=== PATIENT | female | born 2000 | race Two or more races ===

== ENCOUNTER 2021-10-26 11:50 | Emergency (ER) | payer OTHER ==
[2021-10-26 11:59] VITALS: BP 116/84
--- NOTE | 2021-10-26 12:32 | ED Physician Documentation ---
History of Present Illness - Stated complaint Stated Complaint: SOA/HEADACHE - Chief complaint Chief Complaint: General - History obtained from History obtained from: Patient - Additonal information Additional information: Previously healthy 21-year-old woman presents with her son who is also ill for evaluation of fever, cough and body aches. She has been sick for about 3 days. She has a runny nose. No vomiting or diarrhea. No rash. She felt short of breath 2 days ago which improved when she used her son's nebulizer. No home COVID test. Review of Systems Constitutional: reports: Chills, Myalgias, Fatigue Nose: reports: Rhinorrhea / runny nose Throat: reports: Sore throat Respiratory: reports: Dyspnea, Cough PD PAST MEDICAL HISTORY - Present Medications Home Medications: Ambulatory Orders Medication Instructions Recorded Confirmed Albuterol Sulf [Ventolin Hfa 1 - 2 puffs INH Q4HR PRN #1 inhaler 10/26/21 Inhaler] - Allergies Allergies/Adverse Reactions: Allergies Allergy/AdvReac Type Severity Reaction Status Date / Time No Known Drug Allergies Allergy Verified 10/26/21 11:59 PD ED PE NORMAL - Vitals Vital signs reviewed: Yes - General General: Alert and oriented X 3, No acute distress, Well developed/nourished - HEENT HEENT: Ears normal, Pharynx benign - Neck Neck: Supple, no meningeal sign, No bony TTP - Cardiac Cardiac: RRR, No murmur - Respiratory Respiratory: No respiratory distress, Clear bilaterally - Abdomen Abdomen: Non tender - Back Back: No CVA TTP, No spinal TTP - Derm Derm: Normal color, Warm and dry - Neuro Neuro: Alert and oriented X 3, Normal speech Results - Vitals Vitals: Vital Signs - 24 hr 10/26/21 11:56 Temperature 37.1 C Heart Rate 102 H Respiratory 14 Rate Blood Pressure 116/84 H O2 Saturation 100 Oxygen O2 Source Room air PD MEDICAL DECISION MAKING - ED course ED course: Otherwise healthy 21-year-old woman presents for the evaluation of what sounds like a nonspecific viral syndrome with URI symptoms. We will check her for COVID. Discussed the need for quarantine and return precautions. Departure - Departure Disposition: 01 Home, Self Care Clinical Impression: Viral URI Condition: Good Record reviewed to determine appropriate education?: Yes Instructions: ED Viral Syndrome Prescriptions: Albuterol Sulf [Ventolin Hfa Inhaler] 1 - 2 puffs INH Q4HR PRN #1 inhaler PRN Reason: Shortness Of Air/Wheezing Comments: Tylenol and or ibuprofen per package instructions as needed for body aches, f patti. Drink plenty of fluids. Return if not better in about 3 days. You have a Covid test pending. You need to self quarantine until the result is done and negative. Do not leave your house. Do not get near anybody. The results should be done in 48 to 72 hours. We will call with a positive result, the fastest way to get a negative result for confirmation though is to go to the hospital website at [email or web address], click on the my [facility] ePrint tab and sign up for the patient portal. If any friends or family get sick and would like to have a Covid test done, but do not have signs or symptoms that would necessitate being hospitalized, there are multiple local options for Covid testing. [facility] keeps an updated list of testing and vaccination options at: [email or web address].
== END 2021-10-26 12:40 | disposition home or self-care (01) ==
LOC: ED 11:50
DX: U07.1 COVID-19 (principal); J06.9 Acute upper respiratory infection, unspecified
CPT/HCPCS: 99281; 99283

== ENCOUNTER 2022-06-04 21:44 | Outpatient (CLI) | payer OTHER ==
--- NOTE | 2022-06-05 03:17 | Ultrasound Report ---
PROCEDURE: OB First Trimester INDICATIONS: POSITIVE TEST OUTSIDE/PRIOR DATING DATA: Last menstrual period (LMP): 04/01/2022. LMP-based estimated date of delivery (SVITLANA): 01/06/2023. First dating scan (date and location): 06/04/2022. Estimated date of delivery (SVITLANA) from first dating scan: 01/07/2023. TECHNIQUE: Real-time scanning was performed of the fetus and maternal pelvic organs, with image documentation. COMPARISON: None. FINDINGS: Embryo: There is a single intrauterine with a crown-rump length measuring up to 2.4 cm cor responding to a gestational age of 9 weeks 0 days. There is heart motion with a rate of 171 bpm . The cervix appears closed. Measurement variability in dating: +/- 4 weeks by LMP, +/- 7 days by mean sac diameter (use before 6 weeks gestation if crown-rump length not able to be measured), +/- 5 days by crown-rump length (6-12 weeks gestation). Maternal organs: Ovaries appear within normal size limits. There is a left ovarian cyst measuring up to 1.2 cm. IMPRESSION: 1. Single living intrauterine with calculated gestational age of 9 weeks 0 days correspondi ng to an estimated delivery date of 01/07/2023. Findings are concordant with patient's dates by LMP. Reviewed by: Ken Huff MD on 06/05/2022 3:15 AM PST Approved by: Ken Huff MD on 06/05/2022 3:15 AM PST Station ID: [id number]
== END 2022-06-04 21:45 | disposition home or self-care (01) ==
LOC: DI 21:44
PROVIDERS: ATTEND Nurse Practitioner
DX: Z34.91 Encounter for supervision of normal pregnancy, unspecified, first trimester (principal)

== ENCOUNTER 2022-06-17 09:30 | Outpatient (CLI) | payer OTHER ==
[2022-06-18 01:35] LABS: CHLAMYDIA TRACHOMATIS DNA NEGATIVE (NEGATIVE)
[2022-06-18 01:36] LABS: NEISSERIA GONORRHOEAE DNA NEGATIVE (NEGATIVE); TRICHOMONAS VAGINALIS DNA NEGATIVE (NEGATIVE)
== END 2022-06-17 23:59 | disposition home or self-care (01) ==
LOC: LAB.WC 09:30
PROVIDERS: ATTEND Nurse Practitioner
DX: Z11.3 Encounter for screening for infections with a predominantly sexual mode of transmission (principal)
CPT/HCPCS: 87491; 87591; 87661

== ENCOUNTER 2022-06-17 10:09 | Outpatient (CLI) | payer OTHER ==
[2022-06-17 10:32] LABS: BASOPHILS % (AUTO) 0.3 %; EOSINOPHILS # (AUTO) 0.2 10^3/uL (0.0-0.7); EOSINOPHILS % (AUTO) 2.9 %; LYMPHOCYTES # (AUTO) 0.9 10^3/uL (1.5-3.5); MEAN CORPUSCULAR HEMOGLOBIN 28.3 pg (27.0-31.0); MEAN CORPUSCULAR HGB CONC 32.4 g/dL (32.0-36.0); MEAN CORPUSCULAR VOLUME 87.3 fL (81.0-99.0); MEAN PLATELET VOLUME 9.9 fL (7.9-10.8); MONOCYTES # (AUTO) 0.4 10^3/uL (0.0-1.0); MONOCYTES % (AUTO) 6.4 %; NEUTROPHILS # (AUTO) 4.5 10^3/uL (1.5-6.6); NEUTROPHILS % (AUTO) 75.2 %; PLT - PLATELET COUNT 303 10^3/uL (130-450); RED BLOOD COUNT 4.24 10^6/uL (4.20-5.40); RED CELL DISTRIBUTION WIDTH 14.7 % (12.0-15.0)
[2022-06-17 10:42] LABS: CREATININE,URINE 162.8 mg/dL; PROTEIN/CREATININE RATIO,URINE 0.1 (<=0.2)
[2022-06-17 10:44] LABS: ALBUMIN 3.8 g/dL (3.2-5.5); ALBUMIN/GLOBULIN RATIO 0.9 (1.0-2.2); BILIRUBIN,TOTAL 0.5 mg/dL (0.2-1.0); CALCIUM 9.5 mg/dL (8.5-10.3); CREATININE 0.5 mg/dL (0.4-1.0); POTASSIUM 3.9 mmol/L (3.5-5.0); URIC ACID 2.6 mg/dL (2.6-7.2)
[2022-06-18 05:11] LABS: HBsAG SCREEN Negative (Negative)
[2022-06-18 06:10] LABS: RPR Non Reactive (Non Reactive)
[2022-06-18 11:11] LABS: VARICELLA-ZOSTER AB IGG 233 index (Immune >165)
[2022-06-19 03:09] LABS: HCV AB Non Reactive (Non Reactive); HIV SCREEN 4TH GENERATION Non Reactive (Non Reactive)
== END 2022-06-17 10:10 | disposition home or self-care (01) ==
LOC: LAB 10:09
PROVIDERS: ATTEND Nurse Practitioner
DX: O12.11 Gestational proteinuria, first trimester (principal)
CPT/HCPCS: 36415; 80053; 82570; 84156; 84550; 85025; 86592; 86762; 86787; 86803; 86850; 86900; 86901; 87340; 87389

== ENCOUNTER 2022-08-19 16:55 | Outpatient (CLI) | payer OTHER ==
[2022-08-23 14:08] LABS: AFP MOM 0.71 (.); AFP VALUE 47.3 ng/mL (.); DIA VALUE 141.21 pg/mL (.); DSR (BY AGE) 1 IN 1035 (.); DSR (SECOND TRIMESTER) 1 IN 10000 (.); HCG VALUE 20628 mIU/mL (.); INSULIN DEP DIABETES No (.); MATERNAL AGE AT EDD 24.9 yr (.); MULTIPLE GESTATION No (.); OPEN SPINA BIFIDA RISK 1 IN 10000 (.); RACE Other (.); RESULTS Report (.); TEST RESULTS *Screen Negative* (.); TRISOMY 18 RISK Not increased (.); UE3 MOM 1.11 (.); UE3 VALUE 2.62 ng/mL (.); WEIGHT 124 lbs (.)
== END 2022-08-19 16:56 | disposition home or self-care (01) ==
LOC: LAB.N 16:55
PROVIDERS: ATTEND Nurse Practitioner
DX: Z34.90 Encounter for supervision of normal pregnancy, unspecified, unspecified trimester (principal)
CPT/HCPCS: 36415; 81511

== ENCOUNTER 2022-08-22 15:04 | Outpatient (CLI) | payer OTHER ==
--- NOTE | 2022-08-22 18:39 | Ultrasound Report ---
PROCEDURE: OB Detailed Eval INDICATIONS: ANATOMY SCAN OUTSIDE/PRIOR DATING DATA: Last menstrual period (LMP): 04/01/2022. LMP-based estimated date of delivery (SVITLANA): 11/18/2022. First dating scan (date and location): 07/19/2022. Estimated date of delivery (SVITLANA) from first dating scan: 01/07/2023. The below data below was generated using the working SVITLANA of 01/07/2023 TECHNIQUE: Real-time scanning was performed of the fetus, with image documentation and biometric measurements. Endovaginal scanning: None COMPARISON: None. FINDINGS: General: A single living intrauterine gestation is present. Presentation: Variable Placenta: Placental position is superior, without previa. Amniotic fluid index: 13 cm, normal for gestational age. heart rate: 150 beats per minute. Maternal cervical canal: 5.7 cm long; normal length is 2.5 cm or more. biometrics: Biparietal diameter: 4.7 cm, 20 week 2 day Head circumference: 17.8 cm, 20 week 2 day Abdominal circumference: 16.1 cm, 21 week 1 day Femur length: 3.3 cm, 20 week 3 day Estimated gestational age from initial scan: 20 week 2 day Composite gestational age from present scan: 20 week 4 day Estimated weight and percentile: 378 g, 74% Measurement variability in biometric dating: +/- 10 days from 12-20 weeks gestation, +/- 2 weeks from 20-30 weeks gestation, +/- 3 weeks at 30 weeks gestation or later. Anatomic survey: Neuro: Ventricles are normal at less than 10 mm. Cisterna magna is normal at 3-11 mm. Cerebellum i s normal in size and morphology. Nuchal skin fold: Normal at less than 6 mm between 14 and 20 weeks gestational age. Face: Nose and lips, facial profile are normal. Spine: No evidence for spina bifida. Heart: 4-chambered heart is present, with normal ventricular outflow tracts. Diaphragm: Diaphragm is intact. Stomach: Left-sided stomach is present. Kidneys: No hydronephrosis. Normal is less than 5 mm in 2nd trimester, less than 7 mm in 3rd trimester. Cord: 3 vessel cord has orthotopic insertion. Bladder: Normal in size. Extremities: All 4 extremities are visualized. IMPRESSION: Single live intrauterine consistent with 20 week 4 day gestation by current ultrasound Reviewed by: Ed Paz MD on 08/22/2022 5:38 PM MOMO Approved by: Ed Paz MD on 08/22/2022 5:38 PM MOMO Station ID: [id number]
== END 2022-08-22 15:05 | disposition home or self-care (01) ==
LOC: DI 15:04
PROVIDERS: ATTEND Nurse Practitioner
DX: Z34.92 Encounter for supervision of normal pregnancy, unspecified, second trimester (principal)

== ENCOUNTER 2022-08-25 19:46 | Emergency (ER) | payer OTHER ==
[2022-08-25 20:11] LABS: RAPID STREP SCREEN Negative (Negative)
[2022-08-25 20:14] LABS: BILIRUBIN,URINE NEGATIVE (NEGATIVE); GLUCOSE, URINE (UA) NEGATIVE (NEGATIVE); KETONES,URINE (UA) NEGATIVE (NEGATIVE); LEUKOCYTE ESTERASE, URINE NEGATIVE (NEGATIVE); NITRITE,URINE NEGATIVE (NEGATIVE); OCCULT BLOOD,URINE NEGATIVE (NEGATIVE); PROTEIN,URINE NEGATIVE (NEGATIVE); UROBILINOGEN,URINE 1 (NORMAL) E.U./dL (NORMAL)
[2022-08-25] MEDS ORDERED: SODIUM CHLORIDE 0.9% 1,000 ML IV STA (20:16)
[2022-08-25 20:17] LABS: CLARITY,URINE CLEAR (CLEAR)
[2022-08-25] MEDS ORDERED: ONDANSETRON 4 MG/2 ML VIAL IVP STA (20:44)
[2022-08-25 21:22] LABS: B. PARAPERTUSSIS- RESP PCR PAN NOT DETECTED; B. PERTUSSIS- RESP PCR PANEL NOT DETECTED; C. PNEUMONIAE- RESP PCR PANEL NOT DETECTED; CORONAVIRUS 229E-RESP PCR NOT DETECTED; CORONAVIRUS HKU1-RESP PCR NOT DETECTED; CORONAVIRUS NL63-RESP PCR NOT DETECTED; CORONAVIRUS OC43-RESP PCR NOT DETECTED; HUMAN METAPNEUMOVIRUS NOT DETECTED; INFLUENZA A- RESP PCR PANEL NOT DETECTED; INFLUENZA B - RESP PCR PANEL NOT DETECTED; M. PNEUMONIAE- RESP PCR PANEL NOT DETECTED; PARAINFLUENZA VIRUS 1 NOT DETECTED; PARAINFLUENZA VIRUS 2 NOT DETECTED; PARAINFLUENZA VIRUS 3 NOT DETECTED; PARAINFLUENZA VIRUS 4 NOT DETECTED; RHINOVIRUS/ENTEROVIRUS NOT DETECTED; RSV- RESP PCR PANEL NOT DETECTED; SARS-CoV-2 -RESP PCR PANEL NOT DETECTED
--- NOTE | 2022-08-25 21:28 | ED Physician Documentation ---
PD HPI HEENT - Stated complaint Stated Complaint: FEVER, LBP, S/T, 20 WKS PG - Chief complaint Chief Complaint: Fever - History obtained from History obtained from: Patient - Additional information Additional information: The patient comes to the emergency department with chief complaint of fever and sore throat. She states her young son has been sick and has had upper respiratory symptoms and she is wonder if she has gotten the same thing. 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 The patient denies any vomiting but has been nauseated. Patient also reports body aches, and especially, a low back ache. She has been a little bit congested in the nose but denies cough or shortness of breath. She is 20 weeks and denies any problems with the . She has not had any vaginal discharge or bleeding and is feeling the baby move. Her next scheduled OB appointment is September 09. Patient states that her symptoms just started yesterday. PD PAST MEDICAL HISTORY - Present Medications Home Medications: Ambulatory Orders Medication Instructions Recorded Confirmed Albuterol Sulf [Ventolin Hfa 1 - 2 puffs INH Q4HR PRN #1 inhaler 10/26/21 Inhaler] - Allergies Allergies/Adverse Reactions: Allergies Allergy/AdvReac Type Severity Reaction Status Date / Time No Known Drug Allergies Allergy Verified 08/25/22 19:55 PD ED PE NORMAL - Vitals Vital signs reviewed: Yes - General General: Alert and oriented X 3, No acute distress, Well developed/nourished, Other (The patient appears mildly uncomfortable but otherwise no apparent distress) - HEENT HEENT: Atraumatic, PERRL, EOMI, Moist mucous membranes, Pharynx benign - Neck Neck: Supple, no meningeal sign - Cardiac Cardiac: No murmur, Other (Tachycardic rate regular rhythm) - Respiratory Respiratory: No respiratory distress, Clear bilaterally - Abdomen Abdomen: Soft, Non tender, Non distended - Derm Derm: Normal color, Warm and dry, No rash - Extremities Extremities: No deformity - Neuro Neuro: Alert and oriented X 3 - Psych Psych: Normal mood, Normal affect Results - Vitals Vitals: Vital Signs - 24 hr 08/25/22 08/25/22 08/25/22 19:50 19:51 21:40 Temperature 37.7 C Heart Rate 127 H 119 H 117 H Respiratory 16 16 18 Rate Blood Pressure 123/68 112/70 101/59 L O2 Saturation 100 100 100 Oxygen O2 Source Room air - Labs Labs: Laboratory Tests 08/25/22 08/25/22 08/25/22 19:59 20:06 20:26 Urine Color YELLOW Urine Clarity CLEAR Urine pH 7.0 Ur Specific [place] 1.010 Urine Protein NEGATIVE Urine Glucose (UA) NEGATIVE Urine Ketones NEGATIVE Urine Occult Blood NEGATIVE Urine Nitrite NEGATIVE Urine Bilirubin NEGATIVE Urine Urobilinogen 1 (NORMAL) Ur Leukocyte Esterase NEGATIVE Ur Microscopic Review NOT INDICATED Urine Culture Comments NOT INDICATED Nasal Adenovirus (PCR) NOT DETECTED Nasal B. parapertussis DNA (PCR) NOT DETECTED Nasal Coronavir 229E PCR NOT DETECTED Nasal Coronavir HKU1 PCR NOT DETECTED Nasal Coronavir NL63 PCR NOT DETECTED Nasal Coronavir OC43 PCR NOT DETECTED Nasal Enterovir/Rhinovir PCR NOT DETECTED Nasal Influenza B PCR NOT DETECTED Nasal Influenza A PCR NOT DETECTED Nasal Parainfluen 1 PCR NOT DETECTED Nasal Parainfluen 2 PCR NOT DETECTED Nasal Parainfluen 3 PCR NOT DETECTED Nasal Parainfluen 4 PCR NOT DETECTED Nasal RSV (PCR) NOT DETECTED Nasal B.pertussis DNA PCR NOT DETECTED Nasal C.pneumoniae (PCR) NOT DETECTED [place] Human Metapneumo PCR NOT DETECTED Nasal M.pneumoniae (PCR) NOT DETECTED Nasal SARS-CoV-2 (PCR) NOT DETECTED Group A Strep Rapid Negative PD Medical Decision Making - ED course Complexity details: reviewed results, re-evaluated patient, considered differential, d/w patient ED course: The patient was not febrile here but was tachycardic and as such, I did give her a liter of 0.9 normal saline. She was worked up with rapid strep, urinalysis, respiratory PCR, all of which were negative. She was found to be feeling better. Her tachycardia had improved though she was still tachycardic in the low 100s. Her blood pressure was normal and I did not feel that she was septic at this point in time. However, we have discussed that if she experiences any worsening her symptoms, she should have a low threshold for reevaluation. Departure - Departure Disposition: 01 Home, Self Care Clinical Impression: Viral syndrome, Viral pharyngitis, Second trimester Condition: Stable Instructions: ED Pharyngitis Viral, ED Viral Syndrome Comments: You have been treated today with IV fluids and nausea medication. We have done some tests to try to make sure that you do not have a serious cause of your fever, based on your symptoms. Your urinalysis and strep test are both negative. Your viral panel has just come back and as far as the viruses we can test for, none of them are showing up positive. Most likely you have one of the many other viruses that can cause flulike symptoms and have been going around recently. In general, viral illnesses will get better on their own as your immune system fights them off, and are not responsive to antibiotics. As such, we do not prescribe antibiotics for viral illnesses. Please be sure you drink plenty of fluids every day. You may take Tylenol 650 mg every 4 hours or 1000 mg every 6 hours. If you prefer to take just one 500 mg tablet at a time, you may take that every 3 hours. In general, these kinds of illnesses last anywhere from several days to 1 to 2 weeks. Usually, you will start to notice improvement in symptoms after several days to a week. You should continue your plans to follow-up with your OB specialist on September 09. If you develop concerns about your sooner than that, please call your OB's office and asked to be seen sooner. For non-OB concerns, you may follow-up with your primary doctor. If you wish to view your results from [facility]'s work-up, you may go to our hospital website at [email or web address], click on the "my [facility]" tab, and sign up for the patient portal to see your results. Forms: Activity restrictions Discharge Date/Time: 08/25/22 21:41
[2022-08-25 21:41] VITALS: BP 101/59
== END 2022-08-25 21:41 | disposition home or self-care (01) ==
LOC: ED 19:46
DX: O99.512 Diseases of the respiratory system complicating pregnancy, second trimester (principal); J02.9 Acute pharyngitis, unspecified; Z20.822 Contact with and (suspected) exposure to COVID-19; Z3A.20 20 weeks gestation of pregnancy
CPT/HCPCS: 81001; 81003; 87070; 87086; 87430; 87633; 96374; 99283

== ENCOUNTER 2022-11-01 09:59 | Outpatient (CLI) | payer OTHER ==
[2022-11-01 18:31] LABS: HCT - HEMATOCRIT 29.3 % (37.0-47.0); HGB - HEMOGLOBIN 8.9 g/dL (12.0-16.0); MEAN CORPUSCULAR HEMOGLOBIN 26.7 pg (27.0-31.0); MEAN CORPUSCULAR HGB CONC 30.4 g/dL (32.0-36.0); MEAN PLATELET VOLUME 11.2 fL (7.9-10.8); RED BLOOD COUNT 3.33 10^6/uL (4.20-5.40); RED CELL DISTRIBUTION WIDTH 12.9 % (12.0-15.0); WHITE BLOOD COUNT 8.3 x10^3/uL (4.8-10.8)
== END 2022-11-01 10:00 | disposition home or self-care (01) ==
LOC: LAB.N 09:59
PROVIDERS: ATTEND Obstetrics & Gynecology
DX: Z34.90 Encounter for supervision of normal pregnancy, unspecified, unspecified trimester (principal); Z36.8A Encounter for antenatal screening for other genetic defects
CPT/HCPCS: 36415; 82950; 85027

== ENCOUNTER 2022-12-08 08:00 | Outpatient (CLI) | payer OTHER | END 2022-12-08 23:59 | disposition home or self-care (01) | LOC: LAB.WC 08:00 | PROVIDERS: ATTEND Obstetrics & Gynecology | DX: Z34.90 Encounter for supervision of normal pregnancy, unspecified, unspecified trimester (principal); Z36.85 Encounter for antenatal screening for Streptococcus B | CPT/HCPCS: 87797 ==

== ENCOUNTER 2022-12-12 09:43 | Outpatient (CLI) | payer OTHER ==
[2022-12-12 10:09] VITALS: BP 123/67; O2SAT 100
[2022-12-12 10:35] LABS: BILIRUBIN,URINE NEGATIVE (NEGATIVE); GLUCOSE, URINE (UA) NEGATIVE (NEGATIVE); KETONES,URINE (UA) NEGATIVE (NEGATIVE); LEUKOCYTE ESTERASE, URINE NEGATIVE (NEGATIVE); NITRITE,URINE NEGATIVE (NEGATIVE); OCCULT BLOOD,URINE NEGATIVE (NEGATIVE); PROTEIN,URINE NEGATIVE (NEGATIVE); UROBILINOGEN,URINE 0.2 (NORMAL) E.U./dL (NORMAL)
[2022-12-12 10:45] LABS: BACTERIA,URINE Rare /HPF (None Seen); CLARITY,URINE CLEAR (CLEAR); RBC,URINE 0-5 /HPF (0-5); SQUAMOUS EPITHELIAL CELL,UR FEW Squamous (<= Few); WBC,URINE 0-3 /HPF (0-5)
--- NOTE | 2022-12-12 10:45 | PROVIDER PROGRESS NOTE ---
- HPI Chief Complaint: Labor Check Current : Vital Signs Temperature 98.6 F 12/12/22 10:02 Heart Rate 76 12/12/22 10:02 Respiratory Rate 16 12/12/22 10:02 Blood Pressure 123/67 12/12/22 10:02 O2 Saturation 100 12/12/22 10:02 Temperature 98.6 F 12/12/22 10:02 Heart Rate 76 12/12/22 10:02 Respiratory Rate 16 12/12/22 10:02 Blood Pressure 123/67 12/12/22 10:02 O2 Saturation 100 12/12/22 10:02 If not protocol: Oxygen Flow, liters/minute - Plan Plan: Patient is a 22-year-old G2, P1 at 36 weeks 3 days gestation presenting for low pelvic pain. She had contractions yesterday and the day before every 5 to 15 minutes. Today this feels most like cramping. This worsens with walking and activity and is resolved by reclining. She feels good movement. No leaking or bleeding. No headache, change in vision, right upper quadrant pain. Physical Exam Constitutional: alert, no acute distress, well hydrated, well developed, well nourished, appropriate dress. Cardiovascular: Regular rate and rhythm. Respiratory: no respiratory distress. Abdomen: nondistended, nontender, no guarding. No suprapubic pressure. Psych: affect and mood appropriate, normal interaction, good eye contact. FHT: 140 bpm baseline, moderate variability, accelerations present, no decelerations [place]: Quiescent SVE:0/0/-3 Assessment and plan 22 old G2, P1 at 36 weeks 3 days gestation 1. Abdominal cramping: -Does not appear to be labor related. No contractions on monitor and pain resolved with rest. Likely discomforts of . No bowel or GI complaints. Unremarkable UA. Plan for symptom relief and labor precautions discussed. -Without cervical dilation nor contractions, repeat exam not necessary.
== END 2022-12-12 11:40 | disposition home or self-care (01) ==
LOC: WFO 09:43 → FBP 09:45 → WFO 11:40
PROVIDERS: ATTEND Obstetrics & Gynecology
DX: O99.891 Other specified diseases and conditions complicating pregnancy (principal); R10.2 Pelvic and perineal pain; Z3A.36 36 weeks gestation of pregnancy
CPT/HCPCS: 81001; 87086; 99215

== ENCOUNTER 2022-12-13 11:29 | Outpatient (CLI) | payer OTHER ==
[2022-12-13 11:36] LABS: HCT - HEMATOCRIT 32.2 % (37.0-47.0); HGB - HEMOGLOBIN 9.8 g/dL (12.0-16.0); MEAN CORPUSCULAR HEMOGLOBIN 26.7 pg (27.0-31.0); MEAN CORPUSCULAR HGB CONC 30.4 g/dL (32.0-36.0); MEAN CORPUSCULAR VOLUME 87.7 fL (81.0-99.0); RED BLOOD COUNT 3.67 10^6/uL (4.20-5.40); RED CELL DISTRIBUTION WIDTH 18.9 % (12.0-15.0); WHITE BLOOD COUNT 7.5 x10^3/uL (4.8-10.8)
== END 2022-12-13 11:30 | disposition home or self-care (01) ==
LOC: LAB 11:29
PROVIDERS: ATTEND Obstetrics & Gynecology
DX: O99.013 Anemia complicating pregnancy, third trimester (principal)
CPT/HCPCS: 36415; 82728; 85027

== ENCOUNTER 2023-01-03 08:01 | Inpatient (IN) | payer OTHER ==
[2023-01-03] MEDS ORDERED: CARBOPROST TROMETHAMINE 250 MCG/ML AMP IM PRN (08:36)
[2023-01-03] MEDS ORDERED: OXYTOCIN/SODIUM CHLORIDE 500 ML IV PRN (08:36)
[2023-01-03] MEDS ORDERED: fentaNYL 100 MCG/2 ML VIAL IVP PRN (08:36)
[2023-01-03] MEDS ORDERED: TERBUTALINE 1 MG/ML VIAL SUBQ PRN (08:36)
[2023-01-03] MEDS ORDERED: NIFEdipine 10 MG CAPSULE PO PRN (08:36)
[2023-01-03] MEDS ORDERED: LABETALOL 20 MG/4 ML SYRINGE IVP PRN ×3 (08:36)
[2023-01-03] MEDS ORDERED: TRANEXAMIC ACID IN NACL 1,000 MG/100 ML BAG IV PRN (08:36)
[2023-01-03] MEDS ORDERED: OXYTOCIN 10 UNIT/ML VIAL IM PRN (08:36)
[2023-01-03] MEDS ORDERED: miSOPROStoL 200 MCG TABLET BC PRN (08:36)
[2023-01-03] MEDS ORDERED: lidocaine 1% 20 ML MDV ID PRN (08:36)
[2023-01-03] MEDS ORDERED: SODIUM CHLORIDE FLUSH 0.9% 10 ML SYRINGE IVP PRN (08:36)
[2023-01-03] MEDS ORDERED: miSOPROStoL 200 MCG TABLET PR PRN (08:36)
[2023-01-03] MEDS ORDERED: LACTATED RINGERS 1,000 ML IV PRN (08:36)
[2023-01-03] MEDS ORDERED: hydrALAZINE INJ 20 MG/ML VIAL IVP PRN ×2 (08:36)
[2023-01-03] MEDS ORDERED: METHYLERGONOVINE 0.2 MG/ML VIAL IM PRN (08:36)
--- NOTE | 2023-01-03 08:36 | HISTORY & PHYSICAL EXAMINATION ---
Admit History - Visit Reason Visit Reason: Other (Induction of labor) - : 2 Parity: 1 Complications This : positive: Other (Anemia) Smoking Status: Never smoker - Mother's Labs Mother's Blood Type: positive: O Mother's RH: positive: Positive GBS: positive: Group B Step Negative Rubella Status: positive: Immune - Other Maternal History Other Maternal History: HPI: Patient is a 22-year-old -0-0-1 at 39 weeks 4 days gestation presenting for induction of labor. She has good movement. Feels an occasional contraction. Denies loss of fluid. No MISTRY/BV or RUQP. No vaginal bleeding. Denies nausea and vomiting. Denies urinary urgency or dysuria. All other symptoms reviewed and were negative except per HPI. Course LMP: 04/01/2022 SVITLANA by LMP: 01/06/2023 Initial U/S: 06/04/2022; 9 weeks + 0 days; c/w dates Final SVITLANA: 01/06/2023 Problems: Iron deficiency anemia, iron infusions x4 completed Pre- Weight: 115.6 BMI: 21.22 Blood type: O positive Rh: positive Antibody: negative CBC: PLT-303 HCT-37.0 HGB-12.0 11/01/22 Hgb: 8.9 Hct:29.3 Plt: 279 RUB: immune VZV: immune HBsAg: negative HepC: negative RPR/AB-EIA: non-reactive HIV: negative PAP: 3 years ago, normal GC/CT: negative HSV: denies Genetic testing: Quad screen negative Covid: first series no booster Flu: 06/16/2022 FAS:Normal anatomy ultrasound It's a GIRL! WNL EFW 74% 2 or 3 VC posterior/ No previa AMARI normal 50gm OGCT: 79 3HR GTT: TDAP: given 10/20 Breast Pump: has one Antibody screen: 3rd trimester H/H 8.9/29.3 PLT 279- iron infusions complete 3rd trimester HIV GBS: Negative at 35.6wks Delivery plan: plan for - first baby was IOL on ripe cervix, she asked about IOL discussed that we will consider in the future, maybe let's see how it goes. MOD: Contraception: shot? no h/o PPD, no h/o headaches. Feeding: breast PMH Iron deficiency anemia PSH Denies previous surgeries OB History -0-0-1 1. 06/26/2019, 40 weeks 5 days, , male, 5 pounds 8 ounces SH Denies tobacco, alcohol, drugs Family History Denies significant medical history Allergies No known drug allergies Medications vitamins Physical exam: General: Alert, oriented, no acute distress Head: Normal cephalic atraumatic Eyes: PERRLA, extraocular motions intact. Respiratory: Normal rate of respiration. No accessory muscle use, normal respiratory effort. Cardiovascular: Regular rate and rhythm Abdomen: Gravid, nontender, nondistended Extremities: Normal range of motion Neuro: Oriented x3. Normal movements Psych: Appropriate mood and affect. Normal judgment and insight SVE: 3/75/-3 FHT: 130 bpm baseline, moderate variability, accelerations present, no decelerations. [place]: Irregular Plan 22-year-old -0-0-1 at 39 weeks 4 days gestation here for induction of labor 1. Induction of labor at term -Admit to L&D, admit labs, epidural at patient's request. -Plan to start with oxytocin as head is still high. Anticipate amniotomy when appropriate. -Anticipate 2. 39 weeks gestation 3. Anemia of -CBC pending this morning. Iron deficiency has improved with iron infusions in . - NST Procedure NST Procedure Start Time 09:52 Stop Time 10:16 Meds/Allgy - Home Medications Home Medications: Ambulatory Orders Medication Instructions Recorded Confirmed Albuterol Sulf [Ventolin Hfa 1 - 2 puffs INH Q4HR PRN #1 inhaler 10/26/21 Inhaler] - Allergies Allergies/Adverse Reactions: Allergies Allergy/AdvReac Type Severity Reaction Status Date / Time No Known Drug Allergies Allergy Verified 08/25/22 19:55 Plan for Labor - Plan For Labor I expect patient to be DC'd or transferred within 96 hours.: Yes
[2023-01-03] MEDS: SODIUM CHLORIDE FLUSH 0.9% 10 ML SYRINGE IVP SCH ×2 (08:45→17:56)
[2023-01-03] MEDS ORDERED: OXYTOCIN/SODIUM CHLORIDE 500 ML IV SCH (09:00)
[2023-01-03] MEDS: LACTATED RINGERS 1,000 ML IV SCH ×2 (09:12→19:14)
[2023-01-03 09:38] LABS: BASOPHILS % (AUTO) 0.5 %; EOSINOPHILS # (AUTO) 0.1 10^3/uL (0.0-0.7); EOSINOPHILS % (AUTO) 1.8 %; HGB - HEMOGLOBIN 10.9 g/dL (12.0-16.0); LYMPHOCYTES # (AUTO) 1.3 10^3/uL (1.5-3.5); LYMPHOCYTES % (AUTO) 19.7 %; MEAN CORPUSCULAR HEMOGLOBIN 27.3 pg (27.0-31.0); MEAN CORPUSCULAR HGB CONC 31.1 g/dL (32.0-36.0); MEAN CORPUSCULAR VOLUME 87.7 fL (81.0-99.0); MEAN PLATELET VOLUME 10.7 fL (7.9-10.8); MONOCYTES # (AUTO) 0.2 10^3/uL (0.0-1.0); MONOCYTES % (AUTO) 3.3 %; NEUTROPHILS # (AUTO) 4.9 10^3/uL (1.5-6.6); NEUTROPHILS % (AUTO) 73.8 %; PLT - PLATELET COUNT 210 10^3/uL (130-450); RED BLOOD COUNT 3.99 10^6/uL (4.20-5.40); RED CELL DISTRIBUTION WIDTH 19.4 % (12.0-15.0); WHITE BLOOD COUNT 6.7 x10^3/uL (4.8-10.8)
[2023-01-03] MEDS ORDERED: ONDANSETRON 4 MG/2 ML VIAL IVP PRN ×2 (10:24→16:30)
[2023-01-03] MEDS ORDERED: CALCIUM CARBONATE CHEW 500 MG TABLET PO PRN (10:24)
[2023-01-03] MEDS ORDERED: ROPIVACAINE 0.2% 200 MG/100 ML BAG EP ONE (16:05)
[2023-01-03] MEDS ORDERED: ePHEDrine 50 MG/ML VIAL IVP PRN (16:30)
[2023-01-03] MEDS ORDERED: diphenhydrAMINE INJ 50 MG/ML VIAL IVP PRN (16:30)
[2023-01-03] MEDS ORDERED: ROPIVACAINE 0.2% 200 MG/100 ML BAG EP PRN (16:30)
[2023-01-03] MEDS ORDERED: NALBUPHINE 10 MG/ML AMP IVP PRN (16:30)
[2023-01-03] MEDS ORDERED: METOCLOPRAMIDE 10 MG/2 ML VIAL IVP PRN (16:30)
[2023-01-03] MEDS ORDERED: NALOXONE 0.4 MG/ML VIAL IVP PRN (16:30)
--- NOTE | 2023-01-03 16:34 | ANESTHESIA ---
Pre-Anesthesia VS, & Labs - Diagnosis active labor/pain - Procedure labor epidural Vital Signs: Temp Pulse Resp BP Pulse Ox O2 Flow Rate 36.7 C 94 16 117/71 01/03/23 09:00 01/03/23 09:00 01/03/23 09:00 01/03/23 09:00 Height: 5 ft 2 in Weight (kg): 67.585 kg Body Mass Index: 27.2 BMI Classification: Overweight - NPO Other - Is Patient ?: Yes - Lab Results Current Lab Results: Laboratory Tests 01/03/23 09:31: WBC 6.7, RBC 3.99 L, Hgb 10.9 L, Hct 35.0 L, MCV 87.7, MCH 27.3, MCHC 31.1 L, RDW 19.4 H, Plt Count 210, MPV 10.7, Neut # (Auto) 4.9, Lymph # (Auto) 1.3 L, [place] # (Auto) 0.2, Eos # (Auto) 0.1, Baso # (Auto) 0.0, Absolute Nucleated RBC 0.00, Nucleated RBC % 0.0 01/03/23 09:31: Blood Type O POSITIVE, Antibody Screen NEGATIVE Fish Bones: 01/03/23 09:31 Home Medications and Allergies Active Medications Calcium Carbonate/Glycine (Calcium Carbonate Chew 500 Mg Tablet) 500 mg PO Q6HR PRN PRN Reason: INDIGESTION Carboprost Tromethamine (Carboprost Tromethamine 250 Mcg/Ml Amp) 250 mcg IM .ONCE PRN PRN Reason: Hemorrhage Fentanyl (Fentanyl 100 Mcg/2 Ml Vial) 50 mcg IVP Q1H PRN PRN Reason: Severe Pain (score 7-10) Hydralazine HCl (Hydralazine Inj 20 Mg/Ml Vial) 10 mg IVP .ONCE PRN; Protocol PRN Reason: SBP> or= 160 OR DBP> or= 110 Hydralazine HCl (Hydralazine Inj 20 Mg/Ml Vial) 5 - 10 mg IVP Q20M PRN; Protocol PRN Reason: SBP> or= 160 OR DBP> or= 110 Oxytocin/Sodium Chloride (Pitocin/Sodium Chloride) 500 mls @ 999 mls/hr IV PRN PRN; Protocol PRN Reason: POST- HEMORR PREVENTION Tranexamic Acid (Tranexamic 1,000 Mg/100ml-Nacl) 1,000 mg in 100 mls @ 600 mls/hr IV Q30M PRN PRN Reason: EBL >1200mL and within 3hr Lactated Ringer's (Lr) 1,000 mls @ 125 mls/hr IV .Q8H HAN Last Infusion: 01/03/23 15:53 Dose: Infused Lactated Ringer's (Lr) 1,000 mls @ 999 mls/hr IV PRN PRN PRN Reason: PER PHYSICIAN ORDER Last Admin: 01/03/23 15:52 Dose: 999 mls/hr Oxytocin/Sodium Chloride (Pitocin/Sodium Chloride) 500 mls @ 2 mls/hr IV TITR HAN; Protocol Last Titration: 01/03/23 14:59 Dose: 16 milliunit/min, 16 mls/hr Labetalol HCl (Labetalol 20 Mg/4 Ml Syringe) 20 mg IVP .ONCE PRN; Protocol PRN Reason: SBP> or= 160 OR DBP> or= 110 Labetalol HCl (Labetalol 20 Mg/4 Ml Syringe) 20 - 80 mg IVP Q10M PRN; Protocol PRN Reason: SBP> or= 160 OR DBP> or= 110 Labetalol HCl (Labetalol 20 Mg/4 Ml Syringe) 20 - 40 mg IVP Q10M PRN; Protocol PRN Reason: SBP> or= 160 OR DBP> or= 110 Lidocaine HCl (Lidocaine 1% 20 Ml Mdv) 20 ml ID .ONCE PRN PRN Reason: PERINEAL REPAIR Stop: 01/06/23 08:37 Methylergonovine Maleate (Methylergonovine 0.2 Mg/Ml Vial) 0.2 mg IM .ONCE PRN PRN Reason: Hemorrhage Misoprostol (Misoprostol 200 Mcg Tablet) 600 mcg BC .ONCE PRN PRN Reason: Hemorrhage Misoprostol (Misoprostol 200 Mcg Tablet) 800 mcg [place] .ONCE PRN PRN Reason: Hemorrhage Nifedipine (Nifedipine 10 Mg Capsule) 10 - 20 mg PO Q20M PRN; Protocol PRN Reason: SBP> or= 160 OR DBP> or= 110 Ondansetron HCl (Ondansetron 4 Mg/2 Ml Vial) 4 mg IVP Q6HR PRN PRN Reason: Nausea / Vomiting Last Admin: 01/03/23 10:34 Dose: 4 mg Oxytocin (Oxytocin 10 Unit/Ml Vial) 10 unit IM .ONCE PRN PRN Reason: Step One if no IV access. Sodium Chloride (Sodium Chloride Flush 0.9% 10 Ml Syringe) 10 ml IVP Q8H HAN Last Admin: 01/03/23 08:45 Dose: 10 ml Sodium Chloride (Sodium Chloride Flush 0.9% 10 Ml Syringe) 10 ml IVP PRN PRN PRN Reason: NEEDED PER PROVIDER ORDERS Terbutaline Sulfate (Terbutaline 1 Mg/Ml Vial) 0.25 mg SUBQ .ONCE PRN PRN Reason: Tachystole Allergies/Adverse Reactions: Allergies Allergy/AdvReac Type Severity Reaction Status Date / Time No Known Drug Allergies Allergy Verified 08/25/22 19:55 Anes History & Medical History - Anesthetic History Anesthesia Complications: reports: No previous complications Family history of Anesthesia Complications: Denies Family history of Malignant Hyperthermia: Denies - Medical History Cardiovascular: reports: None Pulmonary: reports: None Smoking Status: Never smoker - Obstetrical History : 2 Parity: 1 Complications: reports: Other (Anemia) Exam General: Alert, Oriented x3, Cooperative Dental: WNL Mouth Openin Fingerbreadth Neck Mobility: Normal Mallampati classification: II Thyromental Distance: 4-6 cm Respiratory: Lungs clear Cardiovascular: Regular rate Plan Anesthesia Type: Epidural Consent for Procedure(s) Verified and Reviewed: Yes Code Status: Attempt Resuscitation ASA classification: 2-Mild systemic disease Is this case an emergency?: No
--- NOTE | 2023-01-03 16:48 | PROVIDER PROGRESS NOTE ---
Labor Progress Note - Uterine Monitoring Uterine Monitoring Mode: positive: External toco Contraction Frequency (min/apart): 2 Contraction Intensity: positive: Moderate to strong Uterine Resting Tone: positive: Soft - Monitoring Monitor Mode: positive: External ultrasound Heart Rate Baseline: 130 Heart Rate Variability: positive: Moderate (6-25 bmp) Accelerations: positive: Present, 15x15 Decelerations: positive: None Strip Review: positive: Category I - Vaginal Exam Dilation (in cm): 5 Effacement (%): 90 Station: -2 - Labor Progress Note Labor Progress Note/Additional Text: I was unable to reach cervix last exam, but patient has since received and epidural and is much more comfortable. Unchanged from previous RN exam. head well-engaged. Amniotomy discussed and patient agreed. Performed with a small amount of clear fluid. Continue oxytocin for induction.
--- NOTE | 2023-01-03 21:16 | PROVIDER PROGRESS NOTE ---
Labor Progress Note - Uterine Monitoring Uterine Monitoring Mode: positive: External toco Contraction Frequency (min/apart): 2-3 Contraction Intensity: positive: Moderate Uterine Resting Tone: positive: Soft - Monitoring Monitor Mode: positive: External ultrasound Heart Rate Baseline: 130 Heart Rate Variability: positive: Moderate (6-25 bmp) Accelerations: positive: Present, 15x15 Decelerations: positive: Early Strip Review: positive: Category I - Vaginal Exam Dilation (in cm): 6 Effacement (%): 90 Station: 0 - Labor Progress Note Labor Progress Note/Additional Text: Patient on 23 units of oxytocin. As she is requiring more than usual, IUPC was placed. Patient did have the sensation of difficulty catching her breath although oxygenation and other vitals were normal other than a period of mild hypotension. Turned epidural down and symptoms resolved.
[2023-01-03] MEDS ORDERED: SIMETHICONE CHEW 80 MG TABLET PO PRN (23:22)
[2023-01-03] MEDS ORDERED: DOCUSATE SODIUM 100 MG CAPSULE PO PRN (23:22)
--- NOTE | 2023-01-03 23:26 | DELIVERY NOTE ---
Delivery Note - Labor Labor: positive: Induced by oxytocin - Infant Delivery Method Delivery Method: positive: Spontaneous vaginal delivery - Presentation Presentation: positive: Compound (Right arm), OA - occiput anterior - Nuchal Cord Nuchal Cord: positive: Present, Reduced - Anesthetic Anesthetic Type: - Amniotic Fluid Description Amniotic Fluid Description: positive: Clear - Laceration Laceration: positive: None - Delivery Outcome Delivery Outcome: positive: Livebirth - [place] : positive: Placed in direct skin contact with mother [place] sex: positive: Female - Cord Cord: positive: 3 vessels - Placenta Placenta: positive: Intact - Estimated Blood Loss Estimated Blood Loss (in cc): 150 - Post Delivery Events Post Delivery Events: positive: No post delivery events - Delivery Comments (Free Text/Narrative) Delivery Comments (Free Text/Narrative): Preoperative Diagnoses 39 weeks gestation Induction of labor Postoperative Diagnoses Same Status post continuous vaginal delivery Delivery of live fermin Labor summary: Patient was admitted at 39 weeks gestation for induction of labor at term. was complicated by anemia of , but improved at time of delivery. She was brought in and had a favorable cervical exam and was started on oxytocin. head remained high and ballotable for several hours, but when it descended into the pelvis, she had amniotomy performed with a moderate mount of clear fluid. She was continued on oxytocin throughout the afternoon and as she was slow to progress, a intrauterine pressure catheter was placed. Oxytocin was titrated to adequate contractions and she progressed to complete and ready to push. Delivery Summary: Patient was placed in the dorsal lithotomy position. Upon maternal pushing the head was delivered atraumatically followed by the anterior shoulder, posterior shoulder, then the remainder of the infant's body. A female was delivered with APGARS of 8 at 1 minute and 9 at 5 minutes. The infant was placed on its mother's chest . After the cord finished pulsating, the umbilical cord was clamped times two and cut. The placenta delivered intact with three vessel cord. Placenta was not sent to pathology. Thirty units of Pitocin were added to the IV fluid and allowed to run freely. Uterine massage was performed until uterus was deemed firm. Upon inspection of the perineum, vagina and cervix were intact. Uterus again massaged and found to be firm. Needle and sponge counts were correct. Patient was stable and allowed to recover in L&D room. was stable and remained in room with mother. weight is pending at this time.
[2023-01-03] MEDS ORDERED: LACTATED RINGERS 1,000 ML IV SCH (23:45)
[2023-01-04] MEDS: ACETAMINOPHEN 500 MG TABLET PO SCH ×3 (01:39→19:32)
[2023-01-04] MEDS: IBUPROFEN 600 MG TABLET PO SCH ×4 (01:39→20:10)
[2023-01-04 02:45] VITALS: O2SAT 100
--- NOTE | 2023-01-04 08:06 | PROVIDER PROGRESS NOTE ---
Subjective - Prog Note Date Prog Note Date: 01/04/23 Prog Note Time: 08:06 - Subjective Subjective: Subjective Patient reports she is doing well. Lochia appropriate. Denies heavy bleeding. Ambulating. Pelvic and abdominal pain well-controlled. Tolerating oral intake. Diet: Regular. Voiding without difficulty. Passing flatus. Denies BM. Patient is bonding with baby in room Breast feeding going well. Denies feeling lightheaded, dizzy or excessively fatigued. Objective General: Alert, oriented, no apparent distress. Cardiovascular: Regular rate. Regular rhythm. Lungs: No increased work of breathing. Abdomen: Uterus firm. Below umbilicus. No guarding or rebound. Extremities: No pain on palpation. No cords palpated. Distal pulses intact. Assessment and Plan day 1. -Routine care -Anticipate discharge tomorrow Objective - Vital Signs/Intake & Output Vital Signs: Vital Signs x48h Temp Pulse Resp BP Pulse Ox 01/04/23 04:15 98.6 F 01/04/23 03:26 101 H 16 96/69 100 01/04/23 02:09 99.1 F 79 16 90/59 L 100 Intake & Output: Intake & Output 01/01/23 01/02/23 01/03/23 01/04/23 23:59 23:59 23:59 23:59 Intake Total 3771.734 901.266 Output Total 770 1492 Balance 3001.734 -590.734 - Lab Results Fish Bones: 01/03/23 09:31 Other Labs: Lab Results x24hrs 01/03/23 01/03/23 Range/Units 09:31 09:31 WBC 6.7 (4.8-10.8) x10^3/uL RBC 3.99 L (4.20-5.40) 10^6/uL Hgb 10.9 L (12.0-16.0) g/dL Hct 35.0 L (37.0-47.0) % MCV 87.7 (81.0-99.0) fL MCH 27.3 (27.0-31.0) pg MCHC 31.1 L (32.0-36.0) g/dL RDW 19.4 H (12.0-15.0) % Plt Count 210 (130-450) 10^3/uL MPV 10.7 (7.9-10.8) fL Neut # (Auto) 4.9 (1.5-6.6) 10^3/uL Lymph # (Auto) 1.3 L (1.5-3.5) 10^3/uL [place] # (Auto) 0.2 (0.0-1.0) 10^3/uL Eos # (Auto) 0.1 (0.0-0.7) 10^3/uL Baso # (Auto) 0.0 (0.0-0.1) 10^3/uL Absolute Nucleated RBC 0.00 x10^3/uL Nucleated RBC % 0.0 /100WBC Blood Type O POSITIVE Antibody Screen NEGATIVE
[2023-01-04] MEDS ORDERED: WITCH HAZEL/GLYCERIN 1 PAD TOP PRN (20:44)
[2023-01-05] MEDS: IBUPROFEN 600 MG TABLET PO SCH ×3 (02:10→09:28)
[2023-01-05] MEDS: ACETAMINOPHEN 500 MG TABLET PO SCH ×3 (03:30→09:28)
--- NOTE | 2023-01-05 11:00 | DISCHARGE SUMMARY ---
Discharge Summary Discharge Date: 01/05/23 Discharging Provider: Nora Primary Care Provider: Blane Code Status: Attempt Resuscitation Condition at Discharge: Good Discharge Disposition: 01 Home, Self Care - DIAGNOSES Admission Diagnoses: induction of labor - HPI History of Present Illness: Patient underwent an adductor romeo of labor. She had an uncomplicated normal spontaneous vaginal delivery and uncomplicated course and was discharged home on day 2. - HOSPITAL COURSE Hospital Course: Uncomplicated normal spontaneous vaginal delivery uncomplicated cours e. - ALLERGIES Allergies/Adverse Reactions: Allergies Allergy/AdvReac Type Severity Reaction Status Date / Time No Known Drug Allergies Allergy Verified 08/25/22 19:55 - MEDICATIONS Home Medications: Ambulatory Orders Medication Instructions Recorded Confirmed Albuterol Sulf [Ventolin Hfa 1 - 2 puffs INH Q4HR PRN #1 inhaler 10/26/21 Inhaler] - PHYSICAL EXAM AT DISCHARGE General Appearance: positive: No acute distress Respiratory: positive: No respiratory distress, Breath sounds nml Cardiovascular: positive: Regular rate & rhythm Abdomen: positive: Non-tender (firm fundus below the umbilicus) Skin: positive: Color nml Extremities: positive: Non-tender, No pedal edema - LABS Result Diagrams: 01/03/23 09:31 - FOLLOW UP Follow Up: Follow-up with Dr. Colón. Patient was counseled on signs and symptoms of depression and counseled to call or come in if any symptoms.
--- NOTE | 2023-01-05 11:02 | PROVIDER PROGRESS NOTE ---
Subjective - Prog Note Date Prog Note Date: 01/05/23 Prog Note Time: 11:00 - Subjective Subjective: Patient is day 2 status postnormal spontaneous vaginal delivery. Patient is doing well this morning. She is ambulating, tolerating a liquid di et, spontaneously voiding. Lochia is less than menses. She denies chest pain shortness of breath. Objective - Vital Signs/Intake & Output Reviewed Vital Signs: Yes Vital Signs: Vital Signs x48h Temp Pulse Resp BP Pulse Ox 01/05/23 04:55 98.4 F 66 16 118/71 100 Intake & Output: Intake & Output 01/02/23 01/03/23 01/04/23 01/05/23 23:59 23:59 23:59 23:59 Intake Total 3771.734 901.266 Output Total 770 1492 Balance 3001.734 -590.734 - Objective General Appearance: positive: No acute distress Respiratory: positive: No respiratory distress, Breath sounds nml Cardiovascular: positive: Regular rate & rhythm Abdomen: positive: Non-tender (firm fundus below the umbilicus) Skin: positive: Color nml Extremities: positive: Non-tender, No pedal edema - Lab Results Fish Bones: 01/03/23 09:31 Assessment/Plan - Problem List (1) Vaginal delivery Impression: Patient had uncomplicated vaginal delivery and uncomplicated course she was discharged home on day 2. Patient was counseled on signs and symptoms of depression and counseled to call or come in for symptoms.
[2023-01-05 12:25] VITALS: BP 115/77
--- NOTE | 2023-01-05 16:26 | Labor Flowsheet ---
Labor Flowsheet Datetime Report Generated by CPN: 01/05/2023 16:26 Datetime: 01/05/2023 12:17 VITAL SIGNS NBP Sys/Marguertie/Mean (mmHg): 115 : 77 : 86 Pulse: 80 Datetime: 01/04/2023 01:19 Stage of : Datetime: 01/04/2023 01:15 Pain Relief Measures: Warm blanket given Datetime: 01/04/2023 00:16 PAIN Pain Scale: 0 Datetime: 01/04/2023 00:01 Respirations: 16 Datetime: 01/03/2023 23:19 LaborFlag: Labor Datetime: 01/03/2023 23:14 UTERINE ACTIVITY Monitor Mode: Internal Frequency (min): 1.5-2.5 Quality: Strong Duration (sec): 80-90 Pattern: Normal: <= 5 Contractions in 10 Minutes Resting Tone (Palpate): Relaxed Resting Tone IUP (mmHg): 20-25 Intensity IUP (mmHg): 50-70 ASSESSMENT A Monitor Mode: External US FHR Baseline Rate : 135 Variability: Moderate 6-25 bpm Accelerations: 15X15 Decelerations: Variable Category: Category II Comments: persistent periodic mild christi decels with pushing. Datetime: 01/03/2023 23:13 Monitor Interventions for FHR: Ultrasound Adjusted Datetime: 01/03/2023 23:08 Contraction Comments: IUPC dc'd by Dr Arguelles Datetime: 01/03/2023 23:00 [place] Units (mmHg): 240 Pitocin Checklist: At Least 1 Acceleration of 15 bpm x 15 Seconds in 30 Minutes or Adequate Variabi lity; No More than 1 Late Deceleration Occurred in Past 30 Minutes; No More than 2 Variable Decelerat ions > 60 Seconds in Duration and decreasing >60 bpm in 30 minutes; No More than 5 Uterine Contractio ns in 10 Minutes for any 20 Minute Interval; Uterus Palpates Soft between Contractions; IUPC Resting Tone less than 25 mmHg Datetime: 01/03/2023 22:59 VAGINAL EXAM Dilatation (cm): Dr Arguelles confirmed he had to reach to feel ant. lip jail slipped behind head Exam by: Dr Arguelles Datetime: 01/03/2023 22:54 COMMUNICATION Communication: Provider at Bedside Datetime: 01/03/2023 22:50 I/O Interventions: Victor Discontinued Datetime: 01/03/2023 22:48 Station: 3 Vaginal Bleeding: Normal Show Datetime: 01/03/2023 22:47 Vaginal Exam Comments: swollen ant lip noted, wll support and gently slip behind baby's head with n ext uc Datetime: 01/03/2023 22:40 SpO2 (%): 100 Datetime: 01/03/2023 22:27 Communication Comments: [id number] LJ Spear, gang tailer watched EFM during my break. Reports pt eati ng popsicle Datetime: 01/03/2023 21:34 Vital Sign Comments: pulse ox reapplied. Pain Presence: Intermittent Pain Type: Contraction Pain Location: Abdomen Pain Goal: 9 Pain Coping: Talking Through Contractions Pain Assessment Comments: pt declines PCEA button, reports wants to feel UC's MATERNAL ASSESSMENT Maternal Comments: Pt occ taking deep breaths, reports feels like baby's crowding her lungs. Expla ined UCs firm uterus upward. Patient Care Comments: Pt reports comfortable R lat, no position change at this time. Pt able to r aise HOB prn. At 30 degrees at thsi time Datetime: 01/03/2023 21:33 Temperature (C): 37.0 Datetime: 01/03/2023 21:23 MEDICATIONS Pitocin (milliunits): Increased to @ 25 Datetime: 01/03/2023 21:08 Patient Position/Activity: Right Lateral Datetime: 01/03/2023 21:01 Monitor Interventions for UA: IUPC Inserted Membranes Rupture Method: Artificial Amniotic Fluid Color: Clear Amniotic Fluid Amount: Small Amniotic Fluid Odor: Normal Membrane Comments: forebag AROM Datetime: 01/03/2023 19:52 Provider Notified (Name): Dr Blane Notification Reason: Labor Status Datetime: 01/03/2023 19:40 Effacement (%): 70 Cervix, Consistency: Moderate Cervix, Position: Posterior Datetime: 01/03/2023 19:20 Provider Reviewed Strip: No Datetime: 01/03/2023 19:00 Actions for Decelerations: IV Bolus; Blood Pressure Datetime: 01/03/2023 18:57 Anesthesia Comments: Kinsey Gtz, IT SENIOR SOFTWARE ENGINEER J[employer] at bedside, decreased intermittant bolus from 10 to 8. Datetime: 01/03/2023 18:49 PATIENT CARE IV/Blood Work: IV Bolus Started Datetime: 01/03/2023 18:45 Oxygen Method: Room Air Datetime: 01/03/2023 17:15 FHR Baseline Changes: Tachycardia Datetime: 01/03/2023 16:38 Membrane Status: Ruptured Datetime: 01/03/2023 16:21 Epidural Procedure: Loading Dose Epidural Procedure Other: Pump Started Datetime: 01/03/2023 16:07 PROCEDURE TIME OUT Procedure Verify: Correct Patient Identity; Accurate Procedure Consent Form; Agreement on Procedure to be Done; Correct Patient Position; Addressed Need to Administer Antibiotics or Fluids for Irrigat ion; Safety Precautions Based on Patient History or Medication Use ANESTHESIA Anesthesia Plans: Epidural Epidural Positioning: Sitting Datetime: 01/03/2023 13:43 Membranes Ruptured Date/Time: 01/03/2023 16:38 Datetime: 01/03/2023 11:16 Temperature Route: Oral Datetime: 01/03/2023 10:34 Antiemetics/Antacids: Zofran (mg) @ 4
== END 2023-01-05 14:00 | disposition home or self-care (01) | DRG 805 ==
LOC: WFO 08:01 → FBP 08:02 → WFO 08:35 → FBP 08:36
PROVIDERS: ADMIT Obstetrics & Gynecology; ATTEND Obstetrics & Gynecology Obstetrics
PROC: 10E0XZZ Delivery of Products of Conception, External Approach (ICD-10-PCS; principal; 2023-01-03)
PROC: 3E033VJ Introduction of Other Hormone into Peripheral Vein, Percutaneous Approach (ICD-10-PCS; 2023-01-03)
DX: O32.4XX0 Maternal care for high head at term, not applicable or unspecified (principal); O99.42 Diseases of the circulatory system complicating childbirth; Z37.0 Single live birth; Z3A.39 39 weeks gestation of pregnancy; O99.02 Anemia complicating childbirth; D50.9 Iron deficiency anemia, unspecified; O32.6XX0 Maternal care for compound presentation, not applicable or unspecified; I95.9 Hypotension, unspecified
CPT/HCPCS: 36415; 85025; 86850; 86900; 86901; A9270; J7120